=== PATIENT | female | born 1965 | race Caucasian/White ===

== ENCOUNTER 2020-11-29 12:53 | Outpatient (CLI) | payer OTHER ==
[2020-11-29] MEDS ORDERED: FENTANYL PF 100 MCG/2ML ONE (14:26)
[2020-11-29] MEDS ORDERED: MIDAZOLAM 1 MG/ML, 5ML ONE (14:26)
[2020-11-29] MEDS ORDERED: GADOTERATE 7.5 MMOL/15ML SYR ONE (15:29)
== END 2020-11-29 23:59 | disposition home or self-care (01) ==
LOC: RAD 12:53
PROVIDERS: ATTEND Otolaryngology
DX: Q07.00 Arnold-Chiari syndrome without spina bifida or hydrocephalus (principal); G93.5 Compression of brain; M50.30 Other cervical disc degeneration, unspecified cervical region; M06.9 Rheumatoid arthritis, unspecified; F41.1 Generalized anxiety disorder; Z79.899 Other long term (current) drug therapy; Z88.0 Allergy status to penicillin; Z88.5 Allergy status to narcotic agent; Z88.8 Allergy status to other drugs, medicaments and biological substances; Z98.890 Other specified postprocedural states
CPT/HCPCS: 70553; 72141; 99156; 99157; A9575; J2250; J3010